=== PATIENT | male | born 1945 | race Caucasian/White ===

== ENCOUNTER 2016-09-30 12:52 | Emergency (ER) | payer MEDICARE, OTHER ==
--- NOTE | 2016-09-30 13:10 | ED Physician Chart ---
Chief Complaint/HPI - Patient Information Date Seen:: 09/30/16 Time Seen:: 13:10 Chief Complaint:: PAIN IN THE AREA OF THE RT COSTAL MARGIN. History of Present Illness:: the 71-year-old male presents with a chief complaint of mild pain in the right costal margin area. The patient was born with Marfan syndrome and has deformities of his chest wall with what appear to be exostosies in the region where he is having the pain. The patient was seen and evaluated for the same complaint one week ago at [facility] in [place]. X-rays were taken at that time and showed no acute fractures or lytic lesions. He rates the pain as being anywhere from zero to a 7/10 in severity. The pain is described as sharp when present and dull at other times. He has exacerbating symptoms when he presses over the area with his hands. Patient also has a history of atrial fibrillation and is on Coumadin. He has both thoracic and abdominal aneurysms which are followed by ultrasound and remain under 5 cm in diameter. The patient gets moderate relief of pain with ibuprofen. Review of Systems - Review of Systems General/Constitutional: No fever, No chills, No weight loss, No weakness, No diaphoresis, No loss of appetite Skin: No skin lesions, No rash Head: No headache, No light-headedness Eyes: No loss of vision, No pain ENT: No earache, No nasal drainage, No sore throat Neck: No thyromegaly, No stiffness Cardio Vascular: Chest pain (in the area of a large deformity in the region of the RT costal margin. Probable exostosis.), No edema Pulmonary: No SOB, No cough, No sputum GI: No nausea, No vomiting, No diarrhea, No pain, No hematemesis G/U: Other ( The patient has a decreased urinary stream secondary to prostate enlargement. He also has intermittent dysuria and frequency. No recent hematuria.) Musculoskeletal: No bone or joint pain, No back pain, No muscle pain Endocrine: No polyuria, No polydipsia Psychiatric: Anxiety, No suicidal ideation Hematopoietic: No bruising, No lymphadenopathy Allergic/Immuno: No urticaria, No angioedema Neurological: No syncope, No focal symptoms, No weakness, No paresthesia, No headache, No seizure, No vertigo Past Medical History - Past Medical History Past Medical History: Other ( Marfan syndrome, atrial fibrillation, status post mitral valve repair.) Social History: No Drug Use, Single, Other ( quit smoking in 1989. No use of alcohol. Patient is currently undoctored as he recently fired her. Patient has melena insurance and says he will obtain another physician.) Employment:: unemployed. Family Medical History - Family Member Uncle History Unknown: Yes Physical Exam - Physical Examination General/Constitutional: Well-developed, well-nourished, Alert, No distress, Non- toxic appearing, Ambulatory Head: Atraumatic Eyes: Lids, conjuctiva normal, PERRL, EOMI ( No nystagmus.) Skin: No rash, No skin lesions, No ecchymosis, No lymphadenopathy ENMT: External ears, nose nl, Nasal exam nl ( High arched pallet.), Oropharynx nl, Tonsils nl Neck: Nontender, No JVD, No nuchal rigidity, No mass Respiratory: Nl effort/Exclusion, Clear to Auscultation, No Wheeze/Rhonchi/Rales Cardio Vascular: No murmur, gallop, rubs, NL S1 S2 ( Heart rhythm mildly irregular. Rate in the mid-70s.) GI: No organomegaly, No hernia, Normal BS's, No McBurney tenderness Other GI comments:: I did not appreciate any pulsatile masses in the abdomen. The patient has deformity of the right lower anterior chest wall that appears as a gnarly hardened mass attached to the ribs. Patient states that this is been unchanged over a number of years. : No CVA tenderness, No discharge Extremities: No tenderness or effusion, Full ROM, normal strength in all extremities, No edema ( The digits of the hand are long and slim.) Neuro/Psych: Normal sensory exam, Normal motor strength, Mood normal, Normal gait, No focal deficits Misc: No paraspinal tenderness Other Misc comments:: Moderate kyphosis of the thoracic spine. Labs/Radiology/EKG Results - Lab Results Results: Laboratory Tests 09/30/16 09/30/16 09/30/16 13:57 13:57 13:57 WBC 7.2 RBC 3.30 L Hgb 9.7 L Hct 28.5 L MCV 86.2 MCH 29.4 MCHC Differential 34.1 RDW 17.5 Plt Count 240 MPV 6.8 Neutrophils % 78.1 Lymphocytes % 10.8 L Monocytes % 7.9 Eosinophils % 2.3 Basophils % 0.9 PT 60.6 H* INR 5.49 H* Sodium 137 Potassium 4.1 Chloride 102 Carbon Dioxide 24.9 Anion Gap 14.2 BUN 26 H Creatinine 1.1 Est GFR ( Amer) TNP Est GFR (Non-Af Amer) TNP BUN/Creatinine Ratio 23.6 Glucose 100 Calcium 9.0 Total Bilirubin 1.0 AST 23 ALT 8 Alkaline Phosphatase 314 H Total Protein 6.6 Albumin 3.6 L Globulin 3.0 Albumin/Globulin Ratio 1.2 Urine Source Urine Color Urine Clarity Urine pH Ur Specific [place] Urine Protein Urine Glucose (UA) Urine Ketones Urine Blood Urine Nitrate Urine Bilirubin Urine Urobilinogen Ur Leukocyte Esterase Urine RBC Urine WBC Ur Epithelial Cells Urine Bacteria Fine Granular Casts 09/30/16 16:25 WBC RBC Hgb Hct MCV MCH MCHC Differential RDW Plt Count MPV Neutrophils % Lymphocytes % Monocytes % Eosinophils % Basophils % PT INR Sodium Potassium Chloride Carbon Dioxide Anion Gap BUN Creatinine Est GFR ( Amer) Est GFR (Non-Af Amer) BUN/Creatinine Ratio Glucose Calcium Total Bilirubin AST ALT Alkaline Phosphatase Total Protein Albumin Globulin Albumin/Globulin Ratio Urine Source RANDOM Urine Color YELLOW Urine Clarity HAZY Urine pH 5.0 Ur Specific [place] 1.030 Urine Protein 30 H Urine Glucose (UA) NEGATIVE Urine Ketones TRACE Urine Blood MODERATE H Urine Nitrate NEGATIVE Urine Bilirubin NEGATIVE Urine Urobilinogen 0.2 Ur Leukocyte Esterase NEGATIVE Urine RBC 50-100 H Urine WBC 0-2 Ur Epithelial Cells RARE Urine Bacteria MANY Fine Granular Casts 0-2 H Laboratory interpretation: Eren prolongation of the prothrombin time with an INR of 5.5. There is mild elevation of the BUN but the creatinine is normal. Urinalysis showed 5200 red cells per high-power field and many bacteria. Only 0 to 2 white cells were observed in the urine. No x-ray studies were obtained as the patient had rib x-rays checked one week ago at [facility]. Assessment - Assessment General Assessment: CASE SUMMARY: the 71-year-old male with Marfan syndrome presents complaining of intermittent pain in the region of the right cost of margin. In that same region on physical examination there is a marked prominence of what appears to be a bony exostosis. because he was complaining of urinary symptoms a UA was obtained and showed moderate red blood cells and many bacteria. The INR was 5.5 which was most likely secondary to Coumadin toxicity. I advised the patient to hold off taking any Coumadin over the next two days and to have the INR rejected that time. He was further advised to return to the emergency department for any serious bleeding. He was advised to take acetaminophen for control of his intermittent rib pain. He was advised to avoid using aspirin or NSAIDs. Because he had many bacteria I placed them on Bactrim DS BID for a seven day course. The patient says he will contact [facility] and get referrals for new primary care physician. ED Septic Shock - . Is Septic Shock (SBP<90, OR Lactate>4 mmol\L) present?: No Reassessment (Disposition) - Reassessment Reassessment Condition:: Unchanged - Diagnosis Diagnosis:: ATRIAL FIBRILLATION COUMADIN TOXICITY, MARFAN'S SYNDROME with rib deformity, Prostatic hypertrophy, bacteruria discharge medication: prescription for Bactrim DS BID for one week. Advised to not take Coumadin for at least the next two days and then to have the prothrombin time rechecked. - Aftercare/Follow up Instructions Aftercare/Follow-Up Instructions:: Counseled pt regarding lab results/diagnosis & need follow up ED Discharge Plan - Patient Disposition Admit/Discharge/Transfer: PT DISCHARGED HOME Condition at Disposition: Stable Instructions: Warfarin Coagulopathy, Urinary Tract Infection, [id number]
[2016-09-30 14:07] LABS: % BASOPHILS 0.9 % (0.0-2.0); % EOSINOPHILS 2.3 % (0.0-5.0); % LYMPHOCYTES 10.8 % (20.0-50.0); % MONOCYTES 7.9 % (2.0-10.0); % NEUTROPHILS 78.1 % (40.0-80.0); HEMATOCRIT 28.5 % (39.0-49.0); HEMOGLOBIN 9.7 gm/dL (12.6-17.4); MEAN CELL VOLUME 86.2 fl (80-99); MEAN CORPUSCULAR HEMOGLOBIN 29.4 pg (27.0-31.0); MEAN CORPUSCULAR HGB CONC 34.1 pg (28.0-36.0); MEAN PLATELET VOLUME 6.8 fl; NEUTROPHILE ABSOLUTE 5.5 Th/cmm (1.8-8.0); PLATELET COUNT 240 Th/cmm (150-400); RED CELL DISTRIBUTION WIDTH 17.5 % (11.5-20.0); WHITE BLOOD COUNT 7.2 Th/cmm (4.8-10.8)
[2016-09-30 14:24] LABS: ALB/GLOB RATIO 1.2 (1.0-1.8); ALKALINE PHOSPHATASE 314 U/L (34-104); ANION GAP 14.2 (7.0-16.0); BUN - UREA NITROGEN 26 mg/dL (7-25); BUN/CREATININE RATIO 23.6; CARBON DIOXIDE 24.9 mEq/L (21.0-31.0); CHLORIDE 102 mEq/L (98-107); CREATININE - SERUM 1.1 mg/dL (0.7-1.3); GLUCOSE 100 mg/dL (70-105); POTASSIUM SERUM 4.1 mEq/L (3.5-5.1); SGOT 23 U/L (13-39); SGPT/ALT 8 U/L (7-52); SODIUM SERUM 137 mEq/L (136-145)
[2016-09-30 14:46] LABS: INR 5.49 (0.5-1.4); PROTHROMBIN TIME (TEST) 60.6 SECONDS (9.5-11.5)
[2016-09-30 16:37] LABS: URINE BILIRUBIN NEGATIVE (NEGATIVE); URINE COLOR YELLOW; URINE GLUCOSE (UA) NEGATIVE (NEGATIVE); URINE KETONE TRACE mg/dL (NEGATIVE)
[2016-09-30 16:38] LABS: URINE BLOOD MODERATE (NEGATIVE); URINE PROTEIN 30 mg/dL (NEGATIVE); URINE UROBILINOGEN 0.2 E.U./dL (0.2 - 1.0)
[2016-09-30 16:50] LABS: URINE RBC 50-100 /hpf (0-5)
[2016-09-30 16:51] LABS: URINE BACTERIA MANY /hpf (NONE SEEN); URINE EPITHELIAL CELLS RARE /lpf (FEW); URINE WBC 0-2 /hpf (0-5)
[2016-09-30 16:52] LABS: URINE FINE GRANULAR CAST 0-2 /lpf (NONE SEEN)
== END 2016-09-30 18:37 | disposition home or self-care (01) ==
LOC: ER 12:52
DX: I48.91 Unspecified atrial fibrillation (principal); Q87.40 Marfan syndrome, unspecified; N40.0 Benign prostatic hyperplasia without lower urinary tract symptoms; R82.71 Bacteriuria; Z91.048 Other nonmedicinal substance allergy status
CPT/HCPCS: 36415-UA; 80053-TC; 81001-TC; 85025-TC; 85610-TC; Z7502